=== PATIENT | female | born 2000 | race Caucasian/White ===

== ENCOUNTER 2023-06-14 07:41 | Emergency (ER) | payer MEDICAID ==
[~2023-06-14] VITALS: Ht 154.9 cm; Wt 57.6 kg
[~2023-06-14 07:41] MED LIST: NO HOME MEDS
[2023-06-14 07:44] VITALS: BP 123/79; PULSE 76; RESP 18; TEMP 79.9; O2SAT 99
[2023-06-14] MEDS ORDERED: ondansetron 4mg rapidly disintigrating tab PO ONE (11:35)
[2023-06-14] MEDS ORDERED: ibuprofen tablet 400 MG TABLET PO ONE (11:35)
[2023-06-14] MEDS ORDERED: ONDA4TAB12 PO (11:37)
[2023-06-14] MEDS ORDERED: IBUP-862 PO (11:37)
== END 2023-06-14 12:20 | disposition home or self-care (01) ==
LOC: ER 07:42
DX: S06.0X0A Concussion without loss of consciousness, initial encounter (principal); Z88.0 Allergy status to penicillin; Z88.1 Allergy status to other antibiotic agents; Z79.899 Other long term (current) drug therapy; W22.8XXA Striking against or struck by other objects, initial encounter; Y93.89 Activity, other specified; Y92.89 Other specified places as the place of occurrence of the external cause; Y99.8 Other external cause status
CPT/HCPCS: 99284